=== PATIENT | male | born 1985 | race Caucasian/White ===

== ENCOUNTER 2023-11-01 07:04 | Emergency (ER) | payer OTHER, SELFPAY ==
--- NOTE | ~2023-11-01 | CT_ITS ---
EXAMINATION: CT brain wo con DATE: 11/01/2023 08:09 INDICATION: Head injury. TECHNIQUE: Computed tomography (CT) of the head was performed without intravenous contrast. The mA wa s adjusted according to patient size. Iterative reconstruction technique was employed. The dose-lengt h product was 681.00 mGy-cm. COMPARISON: None FINDINGS: There is no intracranial hemorrhage, acute infarction, or abnormal intracranial mass lesion . The ventricles are normal in size. There is mild mucosal thickening in the paranasal sinuses. The o rbits are normal. There are changes of right mastoidectomy. IMPRESSION: 1. Normal brain. Reviewed, dictated and finalized at location E. IMPRESSION: 1. Normal brain.
--- NOTE | ~2023-11-01 | CT_ITS ---
EXAMINATION: CT facial bones wo con DATE: 11/01/2023 08:11 INDICATION: Head injury. TECHNIQUE: Computed tomography (CT) of the facial bones and maxillofacial region was performed withou t intravenous contrast. Automated exposure control and iterative reconstruction technique were employ ed. The dose-length product was 311.67 mGy-cm. COMPARISON: None. FINDINGS: There is left periorbital soft tissue swelling. There is left cheek soft tissue swelling. T he orbits are normal. There is rightward deviation of the nasal septum. There is mild mucosal thicken ing in the paranasal sinuses. There is a comminuted fracture of left zygomatic arch. IMPRESSION: 1. Comminuted fracture of left zygomatic arch. Reviewed, dictated and finalized at location E.
[2023-11-01 07:08] VITALS: BP 140/84; PULSE 82; RESP 17; TEMP 36.6; O2SAT 97
--- NOTE | 2023-11-01 08:27 | ED.GENADULT ---
HPI - General Adult General Chief complaint: Head Injury Stated complaint: head injury Time Seen by Provider: 11/01/23 07:54 History of Present Illness HPI narrative: Patient is a 37-year-old male who presents to the emergency department this morning with a left black eye. Patient states that he was drinking last night and woke up this morning with the black eye and does not remember what happened. Patient believes that he may have fallen and hit his head, his groin complaining of a headache, and some tenderness around his left eye, otherwise denies any additional injuries. No bruising noted along the patient's bilateral upper lower extremity, abdomen, chest and back. Patient is moving all 4 extremities spontaneously and is ambulatory and walking without any pain or difficulty. He denies any neck pain or back pain. No additional symptoms or concerns at this time. Related Data Allergies Allergy/AdvReac Type Severity Reaction Status Date / Time No Known Allergies Allergy Verified 11/01/23 07:13 Review of Systems Review of Systems: All systems are reviewed and are negative unless stated otherwise in the HPI. Exam Narrative: General: Alert, awake, afebrile, in no acute distress. HEENT: PERRL, no rhinorrhea, no post nasal drip, oropharynx clear, ecchymosis around the left eye, no pain with extraocular movements, tenderness palpation along the left psychometric arch. Cardiovascular: Regular rate and rhythm, no murmurs, rubs or gallops, no peripheral edema. Respiratory: Clear to auscultation bilaterally, no tachypnea, no wheezing, no rhonchi, no rubs, no respiratory distress. Abdomen: Soft, nontender, nondistended, no rebound, no guarding, no peritoneal signs. Musculoskeletal: No joint swelling or deformity, normal muscle tone. Back: No midline tenderness to palpation over the cervical, thoracic, and lumbar spine, no step-offs or deformities. Skin: No rashes or petechia, no signs of infection. Psychiatric: Alert and oriented, normal behavior and judgment for situation. Neurological: Alert and oriented to person, place, and time. Follows all commands. No focal deficits, speech is clear and fluent. Course Vital Signs Vital signs: Vital Signs Temperature 97.8 F 11/01/23 07:08 Pulse Rate 82 11/01/23 07:08 Respiratory Rate 17 11/01/23 07:08 Blood Pressure 140/84 11/01/23 07:08 Pulse Oximetry 97 11/01/23 07:08 Oxygen Delivery Room Air 11/01/23 07:08 Temperature 97.8 F 11/01/23 07:08 Pulse Rate 82 11/01/23 07:08 Respiratory Rate 17 11/01/23 07:08 Blood Pressure 140/84 11/01/23 07:08 Pulse Oximetry 97 11/01/23 07:08 Oxygen Delivery Room Air 11/01/23 07:08 Medical Decision Making MDM Narrative Medical decision making narrative: The patient was evaluated by myself in the emergency department. History is obtained from patient who is an independent historian and physical exam was performed. External medical records were reviewed at this time. IV was established and pertinent tests were ordered. Imaging studies obtained included a CT brain and CT facial bones without IV contrast which was independently interpreted by me revealing a left zygomatic arch comminuted fracture, which is pending final radiology interpretation. Differential diagnosis considerations include facial fractures, intracranial hemorrhage, dehydration. Comorbidities impacting this visit include none. I have evaluated and discussed social determinants of health with the patient that could potentially impact subsequent diagnosis and treatment plans. On repeat assessment of the patient, reevaluation revealed that the patient is doing well and is in no acute distress. Patient symptoms have remained stable since he arrived to our emergency department. Repeat vital signs were all reviewed and noted to be stable. Differential diagnosis and treatment plan were discussed with the patient at bedside. Patient agrees with d
[2023-11-01 08:50] VITALS: BP 124/83; PULSE 91; RESP 16; O2SAT 97
== END 2023-11-01 08:51 | disposition home or self-care (01) ==
PROVIDERS: Emergency Provider Emergency Medicine; PCP Family Medicine
DX: S02.40FA Zygomatic fracture, left side, initial encounter for closed fracture (principal); W19.XXXA Unspecified fall, initial encounter
CPT/HCPCS: 70450; 70486; 99284